=== PATIENT | male | born 1985 | race Caucasian/White ===

== ENCOUNTER 2017-12-23 16:29 | Emergency (ER) | payer SELFPAY ==
[~2017-12-23] VITALS: Ht 188 cm; Wt 110.6 kg
[~2017-12-23 16:29] MED LIST: AMOX500 PO; ATOM40 PO; Bactrim Ds Tab1 EACH PO; CLIN300 PO; Cleocin HCl150 MG PO; DIAZ5 PO; HYDACE5 PO; HYDACE5325 PO; IBUP800 PO; KETO15TC TP; META800 PO; Mobic15 MG PO; Norco 10-325 T1 EACH PO; OXYACE5T PO; RXSULTRIDS PO; SULTRIDS PO; TETR250 PO; TRAM50 PO; Ultram50 MG PO; Zofran Odt4 MG SL; [UNRECOGNIZED DRUG - OTHER]
== END 2017-12-23 17:28 | disposition left against medical advice (07) ==
LOC: ER 16:29
DX: M79.671 Pain in right foot (principal); Z88.5 Allergy status to narcotic agent; F17.200 Nicotine dependence, unspecified, uncomplicated
CPT/HCPCS: 99282

== ENCOUNTER 2018-12-08 22:47 | Emergency (ER) | payer MEDICAID ==
[~2018-12-08] VITALS: Ht 185.4 cm; Wt 108.9 kg
[2018-12-08 23:30] LABS: Source, Urine Clean Catch
[2018-12-08 23:36] LABS: Bilirubin, Urine Neg (Neg); Blood, Urine Neg (Neg); Glucose Qualitative, Urine Neg (Neg); Ketones, Urine 1+ (Neg); Leukocyte Esterase, Urine 1+ (Neg); Nitrite, Urine Neg (Neg); Protein, Urine Neg (Neg); Specific Gravity, Urine 1.015 (1.003-1.022); Urobilinogen, Urine NORM (Normal); pH, Urine 6.5 (5.0-8.0)
[2018-12-08 23:40] LABS: Appearance, Urine Clear (Clear); Color, Urine Yellow (P-Yellow)
[2018-12-08 23:43] LABS: Bacteria Mod /hpf; Mucus Heavy ({null, 0-Heavy}); Red Blood Cells, Urine 0-2 /hpf (0-2); Squamous Epithelial Cells Not Seen /hpf (Few); White Blood Cells, Urine 0-2 /hpf (0-5)
[2018-12-09 00:07] LABS: BASOPHILS ABSOLUTE AUTO 0.06 K/mm3 (0.00-0.23); BASOPHILS PERCENT AUTO 1 % (0-2); EOSINOPHILS ABSOLUTE AUTO 0.17 K/mm3 (0.00-0.68); EOSINOPHILS PERCENT AUTO 2 % (0-6); Hemoglobin 15.1 g/dL (13.5-17.5); IMMATURE GRAN ABSOLUTE AUTO 0.01 K/mm3 (0.00-0.10); IMMATURE GRAN PERCENT AUTO 0 % (0-1); LYMPHOCYTES ABSOLUTE AUTO 2.52 K/mm3 (0.84-5.20); LYMPHOCYTES PERCENT AUTO 32 % (21-46); MONOCYTES ABSOLUTE AUTO 0.75 K/mm3 (0.16-1.47); MONOCYTES PERCENT AUTO 10 % (4-13); Mean Corpuscular HGB 29.4 pg (26.0-34.0); Mean Corpuscular HGB Conc 34.3 g/dL (31.5-36.5); Mean Corpuscular Volume 86 fL (80-100); Mean Platelet Volume 10.4 fL (9.1-12.4); NEUTROPHILS ABSOLUTE AUTO 4.38 K/mm3 (1.96-9.15); NEUTROPHILS PERCENT AUTO 56 % (41-73); Platelet Count 245 K/mm3 (150-400); RDW Coefficient Variation 11.9 % (11.7-14.2); RDW Standard Deviation 36.8 fL (35.1-46.3); Red Blood Cell Count 5.14 M/mm3 (4.30-5.90); White Blood Cell Count 7.89 K/mm3 (4.00-11.30)
[2018-12-09 00:24] LABS: Alanine Aminotransfer (ALT/SGP 30 U/L (12-78); Albumin, Blood 3.9 g/dL (3.4-5.0); Albumin/Globulin Ratio 1.3 (0.8-1.8); Alk Phos 85 U/L (50-136); Anion Gap 6 mmol/L (6-16); Aspartate Aminotrans (AST/SGOT 22 U/L (12-37); Bilirubin, Total 0.8 mg/dL (0.1-1.0); Blood Urea Nitrogen 14 mg/dL (8-24); Bun/Creatinine Ratio 15.9 (12.0-20.0); CO2, Blood 29 mmol/L (21-32); Calcium, Blood 8.8 mg/dL (8.5-10.1); Chloride, Blood 107 mmol/L (98-108); Creatinine, Blood 0.88 mg/dL (0.60-1.20); Globulin, Blood 3.1 g/dL (2.2-4.0); Glomerular Filtration Rate >60 (60-); Glucose, Blood 76 mg/dL (70-99); Potassium, Blood 4.2 mmol/L (3.5-5.5); Sodium, Blood 142 mmol/L (136-145)
== END 2018-12-09 02:07 | disposition home or self-care (01) ==
LOC: ER 22:47
PROVIDERS: Emergency Medicine
DX: R10.31 Right lower quadrant pain (principal); Z88.5 Allergy status to narcotic agent
CPT/HCPCS: 36415; 74176; 80053; 81001; 83690; 85025; 87086; 99284-25

== ENCOUNTER → 2019-12-14 | Outpatient (CLI) | payer OTHER | END | disposition home or self-care (01) | LOC: LAB EV 12:46 → LAB SHORT 12:46 | DX: N39.0 Urinary tract infection, site not specified (principal) | CPT/HCPCS: 87086 ==

== ENCOUNTER 2023-05-08 01:05 | Emergency (ER) | payer OTHER ==
[~2023-05-08] VITALS: Ht 188 cm; Wt 127.0 kg
[2023-05-08 01:17] VITALS: BP 142/79
[2023-05-08] MEDS ORDERED: Cyclobenzaprine5 MG PO (01:22)
[2023-05-08] MEDS ORDERED: Amoxicillin500 MG PO (01:22)
[2023-05-08] MEDS ORDERED: Percocet 5-3251 EACH PO (02:40)
[2023-05-08] MEDS ORDERED: AMOCLA875 PO (02:40)
== END 2023-05-08 02:50 | disposition home or self-care (01) ==
LOC: ER 01:05
DX: L03.116 Cellulitis of left lower limb (principal); S81.802A Unspecified open wound, left lower leg, initial encounter; R60.0 Localized edema; F17.210 Nicotine dependence, cigarettes, uncomplicated; W01.198A Fall on same level from slipping, tripping and stumbling with subsequent striking against other object, initial encounter
CPT/HCPCS: 73590; 99283-25; A9270

== ENCOUNTER 2023-08-16 15:48 | Emergency (ER) | payer OTHER ==
[~2023-08-16] VITALS: Ht 185.4 cm; Wt 133.8 kg
[~2023-08-16 15:48] MED LIST changes: +AMOCLA875 PO; +Amoxicillin500 MG PO; +Cyclobenzaprine5 MG PO; +Percocet 5-3251 EACH PO
[2023-08-16 15:56] VITALS: BP 148/91
== END 2023-08-16 17:10 | disposition home or self-care (01) ==
LOC: ER 15:48
DX: S61.411A Laceration without foreign body of right hand, initial encounter (principal); W26.8XXA Contact with other sharp object(s), not elsewhere classified, initial encounter; Z79.899 Other long term (current) drug therapy
CPT/HCPCS: 12001; 99282-25

== ENCOUNTER 2023-12-10 06:48 | Day surgery (SDC) | payer OTHER ==
[~2023-12-10] VITALS: Ht 188 cm; Wt 105.4 kg
[~2023-12-10 06:48] MED LIST changes: +Lactated Ringer's 1,000 ML IV ONE
[2023-12-10] MEDS ORDERED: Midazolam HCl 1MG / ML 2ML Vial ONE (07:30)
[2023-12-10] MEDS ORDERED: ONDA4ODT (07:32)
[2023-12-10] MEDS ORDERED: OMEP20ER (07:32)
[2023-12-10] MEDS ORDERED: Lactated Ringer's 1,000 ML IV ONE (07:43)
[2023-12-10 08:42] VITALS: BP 156/86
== END 2023-12-10 09:03 | disposition home or self-care (01) ==
LOC: ORSCSDS 06:48
PROVIDERS: Orthopaedic Surgery
PROC: 01N54ZZ Release Median Nerve, Percutaneous Endoscopic Approach (ICD-10-PCS; principal; 2023-12-10 08:00)
DX: G56.03 Carpal tunnel syndrome, bilateral upper limbs (principal); F32.A Depression, unspecified; Z79.899 Other long term (current) drug therapy
CPT/HCPCS: J2250; J7120

== ENCOUNTER 2025-02-17 15:48 | Emergency (ER) | payer OTHER ==
[~2025-02-17] VITALS: Ht 185.4 cm; Wt 136.1 kg
[~2025-02-17 15:48] MED LIST changes: -Lactated Ringer's 1,000 ML IV ONE; +OMEP20ER; +ONDA4ODT
[2025-02-17 17:26] VITALS: BP 160/95
== END 2025-02-17 17:38 | disposition home or self-care (01) ==
LOC: ER 15:48
DX: M54.6 Pain in thoracic spine (principal); R07.81 Pleurodynia; V69.9XXA Occupant (driver) (passenger) of heavy transport vehicle injured in unspecified traffic accident, initial encounter; Z79.899 Other long term (current) drug therapy
CPT/HCPCS: 71045; 73030; 73502; 99284-25